=== PATIENT | male | born 1970 | race Caucasian/White ===

== ENCOUNTER 2022-02-08 01:03 | Inpatient (IN) ==
[2022-02-08] MEDS ORDERED: ASPIRIN CHEW 324 MG PO STA (01:33)
[2022-02-08] MEDS ORDERED: NITROGLYCERIN SL 0.4 MG/TAB TAB SL STA ×2 (01:33→01:46)
[2022-02-08 01:37] LABS: Basophils # (auto) 0.08 K/uL (0-0.2); Basophils % (auto) 0.6 %; Eosinophils # (auto) 0.14 K/uL (0-0.50); Eosinophils % (auto) 1.1 %; Hematocrit (blood only) 42.6 % (40.1-51.0); Hemoglobin 15.1 g/dl (14.0-18.0); Immature Granulocytes # (auto) 0.07 K/uL (0.00-0.02); Immature Granulocytes % (auto) 0.5 %; Lymphocytes # (auto) 3.08 K/uL (1.2-3.4); Lymphocytes % (auto) 23.2 %; Mean Corpuscular Hemoglobin 31.9 pg (25.0-34.0); Mean Corpuscular Hgb Conc 35.4 g/dL (32.0-36.0); Mean Corpuscular Volume 89.9 fL (80.0-100.0); Mean Platelet Volume 10.2 fL (9.4-12.4); Monocytes # (auto) 0.92 K/uL (0.24-0.82); Monocytes % (auto) 6.9 %; Neutrophils # (auto) 9.01 K/uL (1.4-6.5); Neutrophils % (auto) 67.7 %; Platelet Count 266 K/uL (130-400); RDW Coefficient of Variation 12.1 % (11.5-14.5); RDW Standard Deviation 40.1 fL (36.4-46.3); Red Blood Count 4.74 M/uL (4.63-6.08)
[2022-02-08 02:02] LABS: Alanine Aminotransferase 40 U/L (7-52); Albumin Globulin Ratio 1.4 (0.9-2); Albumin Level 4.1 gm/dl (3.4-5.0); Alkaline Phosphatase 65 U/L (34-104); Anion Gap 11 (3-11); Aspartate Aminotransferase 19 U/L (13-39); BUN Creatinine Ratio 16.7 (10-20); Bilirubin,Total 0.3 mg/dl (0.2-1.0); Blood Urea Nitrogen 14 mg/dl (6-23); Calcium 9.3 mg/dl (8.5-10.1); Carbon Dioxide 26 mmol/L (21-32); Chloride 100 mmol/L (98-107); Est GFR (African American) 117.5 ml/min; Est GFR (Non-African American) 101.4 ml/min; Globulin 2.9 gm/dl (2.5-4.0); Glucose 172 mg/dl (70-99(Fasting)); Lipase 166 U/L (11-82); Potassium 3.7 mmol/L (3.5-5.1); Sodium 137 mmol/L (136-145)
[2022-02-08 02:05] LABS: Troponin I High Sensitivity 34.3 pg/ml (0-20)
[2022-02-08] MEDS ORDERED: fentaNYL citrate 100 MCG/2 ML VIAL IV STA (02:34)
[2022-02-08] MEDS ORDERED: Heparin IV Adult Wt-Based Standard *NO* Bolus Protocol IV ONE (02:34)
[2022-02-08] MEDS ORDERED: HEPARIN SODIUM/DEXTROSE 25,000 UNITS/500 ML BAG IV SCH (03:00)
[2022-02-08 03:49] LABS: Partial Thromboplastin Ratio 0.8; Partial Thromboplastin Time 21.7 Seconds (21.0-31.0)
--- NOTE | 2022-02-08 05:03 | History & Physical Report ---
Date of Service February 08, 2022 Assessment & Plan (1) NSTEMI (non-ST elevated myocardial infarction): Plan: 51 y/o M Hx HTN, HLD, CAD, smoker. Developed L sided CP radiating into arm after playing pool at around midnight. He denies nausea/vomiting, diaphoresis or SOB. Initial labs are notable for leukocytosis an a trop of 34. EKG did not support acute ischemia. 1) Likely NSTEMI - serial trops, NTG, beta vahid, ASA, Plavix, Lovenox. Echo and cardiology consult requested, however, he will likely require a cath. 2) HTN - NTG metoprolol, lisinopril 3) HLD - statin changed to high-intensity - Crestor 40mg 4) Advised on smoking cessation Full code - full-dose Lovenox Total time for this admit including review of labs, meds, imaging, records - discussion with pt and ER attending 38 min History of Present Illness Chief Complaint: Chest pain Primary Care Provider: NO PCP 51 y/o M Hx HTN, HLD, CAD, smoker. Developed L sided CP radiating into arm after playing pool at around midnight. He denies nausea/vomiting, diaphoresis or SOB. Initial labs are notable for leukocytosis an a trop of 34. EKG did not support acute ischemia. 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 Family: Mother [place] mid 50s Father age 77 - does not know cause Allergies Allergy/AdvReac Type Severity Reaction Status Date / Time No Known Drug Allergies Allergy Unknown Verified 05/24/21 10:29 Home Medications Medication Instructions Recorded Confirmed Type nitroglycerin 0.4 mg sublingual 0.4 mg sublingual Q5M PRN Chest 03/19/19 05/24/21 History tablet Pain aspirin 81 mg tablet,delayed 81 mg PO DAILY 12/25/19 05/24/21 History release (Mata Low Dose Aspirin) lisinopril 20 mg tablet 20 mg PO DAILY #90 tabs 06/06/21 Rx simvastatin 80 mg tablet 80 mg PO QPM #90 tabs 11/27/21 Rx metoprolol tartrate 50 mg tablet 50 mg PO BID #180 tabs 01/16/22 Rx Past Med/Surg History Social History Smoking Status: Current every day smoker Preferred Language: Finnish Feels Safe at Home: Yes Review of Systems Review of Systems: Gen: Denies fevers, night sweats, rigors, fatigue, malaise, weight loss/gain ENT: Denies congestion, throat pain, hearing loss Eyes: Denies acute visual changes CV: + CP radiating into L arm Pulmonary: Denies SOB, cough, wheezing GI: Denies N/V, diarrhea, constipation Neuro: Denies acute or unilateral weakness, acute gait impairment, headache or acute visual changes Musculoskeletal: Denies joint pain, inflammation Endocrine: Denies polydipsia, polyuria Skin: Denies acute rashes or ulcers Physical Exam Physical Exam: General: AAO x 3, no distress ENT: No erythema or exudates, no thrush Eyes: GIUSEPPE, EOMI Head and neck: Normocephalic, atraumatic, No JVD, neck is supple. Chest/heart: Nontender, S1,2, RRR, no murmurs, no gallops Lungs: CTAB, no wheezing or crackles Abdomen: Nontender, nondistended, BS+ Neuro: AAO x 3, speech is clear, no unilateral weakness or loss of sensation, coordination intact Musculoskeletal: No joint inflammation, muscle tenderness, FROM Skin: No acute rashes or ulcers Extremities: No clubbing, cyanosis, edema Results & Data Results & Data ([facility]) Vital Signs (Past 12 Hours) Vital Signs Temp Pulse Resp BP Pulse Ox O2 Del Method 02/08/22 04:00 72 14 94 Room Air 02/08/22 04:00 158/82 H 02/08/22 03:30 58 L 17 02/08/22 03:30 152/85 H 02/08/22 03:15 59 L 14 02/08/22 03:15 158/83 H 02/08/22 03:00 71 16 95 02/08/22 03:00 135/75 02/08/22 01:43 75 20 95 02/08/22 01:43 147/81 H 02/08/22 01:40 73 17 97 02/08/22 01:39 69 18 95 02/08/22 01:39 148/94 H 02/08/22 01:30 69 18 96 02/08/22 01:20 68 20 96 02/08/22 01:19 68 24 95 02/08/22 01:03 99 Room Air 02/08/22 01:22 99 Room Air 02/08/22 01:07 97.9 F 68 20 157/86 H 98 Room Air PG Care Time/CCT Total # of Minutes Spent Total Time Spent with Patient: Total time spent is greater than 50% in coordination of care (as documented) at patient's floor/unit and/or counseling patient: Coding Level of Care Code 37267 Initial Inpt Care Lvl 2 Diagnoses NSTEMI (non-ST elevated myocardial infarction) I21.4
[2022-02-08] MEDS ORDERED: CLOPIDOGREL BISULFATE 300 MG TAB PO STA ×2 (05:35→08:40)
[2022-02-08] MEDS: D5NSS + 20MEQ KCL 20 MEQ/1,000 ML BAG IV SCH ×2 (05:56→20:06)
[2022-02-08] MEDS ORDERED: ACETAMINOPHEN 325 MG TAB PO PRN (06:31)
[2022-02-08] MEDS ORDERED: ONDANSETRON INJ 2 MG/ML 2 ML VIAL IV PRN (06:31)
[2022-02-08] MEDS ORDERED: NITROGLYCERIN SL 0.4 MG/TAB TAB SL PRN (06:31)
[2022-02-08] MEDS ORDERED: ZOLPIDEM TARTRATE 5 MG TAB PO PRN (06:31)
--- NOTE | 2022-02-08 08:24 | Hospitalist Progress Note ---
Date of Service February 08, 2022 Assessment & Plan (1) NSTEMI (non-ST elevated myocardial infarction): Plan: 51 y/o M Hx HTN, HLD, CAD, smoker. Developed L sided CP radiating into arm after playing pool at around midnight. He denies nausea/vomiting, diaphoresis or SOB. Initial labs are notable for leukocytosis an a trop of 34. EKG did not support acute ischemia. NSTEMI - heart cath culprit lesion, RCA:Large caliber and dominant vessel. Mild irregularities until the distal segment just prior to the bifurcation. There, there is a lot of thrombus and plaque which appears to be ruptured. Appears 80% stenosed and there is ALON II flow beyond the lesion. There is a large PDA as well as a large posterior lateral branch with some of the plaque and thrombus involving the ostium of the PDA. PCI of RCA: There is 0% residual stenosis post PCI There is no evidence of dissection or perforation post PCI ALON-3 flow post PCI DAPT, metoprolol, lisinopril HLD - statin changed to high-intensity - Crestor 40mg counselled on smoking cessation, is a smoker not convinced to stop, pt stated "i quit" Full code - Admission and Anticipated Discharge Date Admission Date: February 08, 2022 Subjective pt seen post cardiac cath, feels well has no chest pain did have thrombectomy and NITISH to E=RCA Review of Systems Review of Systems: Mild distress and fatigue no headache, no visual changes no speech or swallowing issues no further chest pain, pressure or palpitations no shortness of breath, cough or wheezes no abdominal pain, nausea or vomiting, diarrhea or constipation no dysuria, hematuria or frequency no focal joint pain or swelling has T band on his wrist without discomfort no back pain, CVA tenderness or radicular pain no bruising, bleeding or rashes no focal signs of weakness or numbness or altered sensation no complaints of anxiety or depression.. Physical Exam Physical Exam: The patient appeared well nourished and normally developed. Vital signs as documented. Head exam is normocephalic atraumatic Neck is without JVD, thyromegaly, or carotid bruits. Lungs are clear to auscultation, no focal loss of breath sounds Cardiac exam, Rhythm is regular.. No murmurs, rubs or gallops. Abdominal exam reveals normal bowel sounds, soft non tender, no masses Extremities are nonedematous and both pedal pulses are present Neurologic exam is alert and oriented, no focal loss of strength or sensation Skin is without bruises or rashes Psychologically is without concerns for anxiety or depression.. Results & Data Results & Data ([facility]) Vital Signs (Past 12 Hours) Vital Signs Temp Pulse Pulse Resp BP BP Pulse Ox 02/08/22 07:45 97.7 F 61 19 146/67 H 98 02/08/22 07:44 56 L 02/08/22 06:20 97.9 F 62 18 151/82 H 97 02/08/22 06:39 02/08/22 04:00 72 14 94 02/08/22 04:00 158/82 H 02/08/22 03:30 58 L 17 02/08/22 03:30 152/85 H 02/08/22 03:15 59 L 14 02/08/22 03:15 158/83 H 02/08/22 03:00 71 16 95 02/08/22 03:00 135/75 02/08/22 01:43 75 20 95 02/08/22 01:43 147/81 H 02/08/22 01:40 73 17 97 02/08/22 01:39 69 18 95 02/08/22 01:39 148/94 H 02/08/22 01:30 69 18 96 02/08/22 01:20 68 20 96 02/08/22 01:19 68 24 95 02/08/22 01:03 99 02/08/22 01:22 99 02/08/22 01:07 97.9 F 68 20 157/86 H 98 O2 Del Method 02/08/22 07:45 Room Air 02/08/22 07:44 02/08/22 06:20 Room Air 02/08/22 06:39 Room Air 02/08/22 04:00 Room Air 02/08/22 04:00 02/08/22 03:30 02/08/22 03:30 02/08/22 03:15 02/08/22 03:15 02/08/22 03:00 02/08/22 03:00 02/08/22 01:43 02/08/22 01:43 02/08/22 01:40 02/08/22 01:39 02/08/22 01:39 02/08/22 01:30 02/08/22 01:20 02/08/22 01:19 02/08/22 01:03 Room Air 02/08/22 01:22 Room Air 02/08/22 01:07 Room Air PG Care Time/CCT Total # of Minutes Spent Total Time Spent with Patient: Total time spent is greater than 50% in coordination of care (as documented) at patient's floor/unit and/or counseling patient: Coding Level of Care Code 41650 Subseq Hosp Care Lvl 2 Diagnoses NSTEMI (non-ST elevated myocardial infarction) I21.4
[2022-02-08] MEDS ORDERED: SODIUM CHLORIDE 0.9% 1000ML 1,000 ML IV SCH (08:45)
--- NOTE | 2022-02-08 08:52 | Pre Anesthesia Assessment ---
Date of Service February 08, 2022 Pre Sedation Assessment Vital Signs Temp Pulse Pulse Resp BP BP Pulse Ox 02/08/22 07:45 36.5 C 61 19 146/67 H 98 02/08/22 07:44 56 L 02/08/22 06:20 36.6 C 62 18 151/82 H 97 02/08/22 06:39 02/08/22 04:00 72 14 94 02/08/22 04:00 158/82 H 02/08/22 03:30 58 L 17 02/08/22 03:30 152/85 H 02/08/22 03:15 59 L 14 02/08/22 03:15 158/83 H 02/08/22 03:00 71 16 95 02/08/22 03:00 135/75 02/08/22 01:43 75 20 95 02/08/22 01:43 147/81 H 02/08/22 01:40 73 17 97 02/08/22 01:39 69 18 95 02/08/22 01:39 148/94 H 02/08/22 01:30 69 18 96 02/08/22 01:20 68 20 96 02/08/22 01:19 68 24 95 02/08/22 01:03 99 02/08/22 01:22 99 02/08/22 01:07 36.6 C 68 20 157/86 H 98 O2 Del Method 02/08/22 07:45 Room Air 02/08/22 07:44 02/08/22 06:20 Room Air 02/08/22 06:39 Room Air 02/08/22 04:00 Room Air 02/08/22 04:00 02/08/22 03:30 02/08/22 03:30 02/08/22 03:15 02/08/22 03:15 02/08/22 03:00 02/08/22 03:00 02/08/22 01:43 02/08/22 01:43 02/08/22 01:40 02/08/22 01:39 02/08/22 01:39 02/08/22 01:30 02/08/22 01:20 02/08/22 01:19 02/08/22 01:03 Room Air 02/08/22 01:22 Room Air 02/08/22 01:07 Room Air Cardiovascular RRR, no murmur, no edema Respiratory normal respiratory effort, lungs clear to auscultation Pre-Sedation Airway Assessment Smoking Status: Current every day smoker Mallampati Class: III III Notes The planned sedation has been discussed with the patient. Informed Consent was obtained. I have identified the patient, determined the appropriateness of sedation and have assessed the patient immediately prior to the procedure. All medicine(s) and interventions are by my order.
[2022-02-08] MEDS: ASPIRIN 81 MG ECTAB PO SCH (08:57)
[2022-02-08] MEDS: METOPROLOL TARTRATE 50 MG TAB PO SCH ×2 (09:08→20:08)
[2022-02-08] MEDS: lisinopril 20 MG TAB PO SCH (09:09)
--- NOTE | 2022-02-08 09:17 | XRay Report ---
SINGLE VIEW CHEST CLINICAL HISTORY: Atypical chest pain. FINDINGS: An AP, portable, upright chest radiograph is compared to chest x-ray and chest CT dated 09/09. The cardiomediastinal silhouette is top normal for projection. There is pulmonary vascular con gestion. There are mild bibasilar airspace opacities, right greater than left. No pneumothorax is see n. The bony thorax is grossly intact. IMPRESSION: 1. There is pulmonary vascular congestion. 2. Bibasilar airspace opacities are nonspecific and could represent atelectasis versus a mild infecti ous/inflammatory pneumonitis. Clinical correlation will be required. ACT 112: Negative or not required by law. Electronically signed by: Jean Reyes M.D. 02/08/2022 9:16 AM
[2022-02-08] MEDS ORDERED: fentaNYL citrate 100 MCG/2 ML VIAL ONE (09:48)
[2022-02-08] MEDS ORDERED: MIDAZOLAM HCL 1 MG/ML 2ML VIAL ONE (09:48)
[2022-02-08] MEDS ORDERED: niCARdipine HCL INJ 2.5 MG/ML 10 ML AMP ONE (09:48)
[2022-02-08] MEDS ORDERED: HEPARIN (PORCINE) 1000 UNIT/ML 10 ML (CATH LAB USE ONLY) ONE (09:48)
[2022-02-08] MEDS ORDERED: NITROGLYCERIN/D5W 100MCG/ML 20ML SYR ONE (09:49)
--- NOTE | 2022-02-08 11:19 | Cardiac Catheterization ---
[facility] Data: [place] [employer] Cardiac Status Clinical evaluation leading to the procedure CAD Presenation: Non STEMI Anginal Classification: CCS IV Heart Failure: No Cardiogenic Shock within 24 Hours: No Cardiac Arrest within 24 Hours: No Imaging Studies Past 6 Months: No STEMI OR Non-STEMI Symptom Onset Date: 02/07/22 Coronary Anatomy Dominant: Right Left Main (% Stenosis): Normal LAD (% Stenosis): Proximal (Mild) Circumflex (% Stenosis): Normal OM1 (% Stenosis): Proximal (Stent patent) RCA (% Stenosis): Distal (80%) R PDA (% Stenosis): Ostial (80%) Diagnostic Physicians Name: Raúl Marino MD, PhD Closure Device Percutaneous Entry Location: Radial Closure Device: Radial Band Recommendations: PCI without planned CABG PCI Indication: PCI for high risk Non-YOANNA Lesion Segment Name: Distal RCA Culprit Artery: Yes Stenosis Prior to Rx (%): 80% Chronic Total Occlusion: No Pre-Procedure ALON Flow: 2 Previously Treated Lesion: No Lesion Complexity: Non-High/Non-C Lesion Length (mm): 12 Thrombus Present: Yes Bifurcation Lesion: Yes Guidewire Across Lesion: Yes Intraprocedure Events Significant Disection: No Perforation: No Cardiac Cath Procedure Full Procedure Date February 08, 2022 Pre-Procedure Diagnosis Pre-Procedure Diagnosis: Non STEMI AUC Score AUC Score: 07 Post-Procedure Diagnosis Post-Procedure Diagnosis: Severe CAD Procedure(s) Performed Procedure(s) Performed: Coronary Angiography and Drug Eluting Stent (RCA) Veneer Manufacturer Raúl Marino MD, PhD Estimated Blood Loss Estimated Blood Loss: 10ml Medication(s) Medication(s): Fentanyl, Heparin, Lidocaine 1%, Nicardipine, Nitroglycerin and Versed Summary of Findings Brief description: Patient was brought to the cardiac catheterization suite where he was shaved and prepped in a sterile fashion. Sedated using IV Versed and fentanyl. Soft tissues of the right wrist were anesthetized using 1 mL of 1% Xylocaine. The right radial artery was accessed using a modified Seldinger technique and a 6 [place]ian radial artery glide sheath was placed. Patient was provided anticoagulation with IV heparin and antispasmodics including verapamil and nitr oglycerin. All catheters were advanced and exchanged over a 0.035 J-tip wire. Left coronary angiography was performed in orthogonal views with a 5 [place] 4.0 diagnostic catheter Right coronary angiography was performed in orthogonal views with a 5 [place] 4.0 diagnostic catheter. Diagnostic catheters were removed and we proceeded with PCI. ACT was checked and additional heparin was provided as needed to maintain therapeutic ACT. The right coronary artery was engaged with a 6 [place]ian JR4 guide catheter. Through this, a BMW universal guidewire was advanced and positioned distally in the PDA. Over the wire, a 2.5 x 12 mm PTCA balloon was advanced and positioned across the lesion. This was predilated up to 14 giana. The balloon was then removed. A 3.5 x 18 mm [place] drug-eluting stent was then advanced and positioned across the lesion in the distal RCA extending into to the proximal portion of the PDA. This covered the entire lesion and area of clot. The stent was then deployed at 12 giana. Stent balloon was removed. The stent was postdilated in its proximal and mid segments using a 3.5 x 9 mm noncompliant balloon. Inflation to 10 giana in the mid segment. 14 giana followed by 17 giana in the proximal portion of the stent. The noncompliant balloon was then removed. Guidewire was removed and final angiography was performed. The guide catheter was then removed. Radial artery sheath was removed. Hemostasis was obtained using a TR band. Patient was hemodynamically stable and asymptomatic. He was returned to the recovery area. This ended the case. Coronary angiography and PCI findings: LMT: Large caliber bifurcating into LAD and circumflex. Mild luminal irregularities. LAD: Large caliber and transapical. Gives a medium caliber first diagonal and small to medium caliber second and third diagonals. Proximal segment has mild diffuse disease. The mid LAD has mild disease and the distal vessel has mild luminal irregularities. LCx: Large caliber and nondominant. It is essentially a large branching OM1. There is a proximal stent which is widely patent. RCA: Large caliber and dominant vessel. Mild irregularities until the distal segment just prior to the bifurcation. There, there is a lot of thrombus and plaque which appears to be ruptured. Appears 80% stenosed and there is ALON II flow beyond the lesion. There is a large PDA as well as a large posterior lateral branch with some of the plaque and thrombus involving the ostium of the PDA. PCI of RCA: There is 0% residual stenosis post PCI There is no evidence of dissection or perforation post PCI ALON-3 flow post PCI Hemodynamics Rest Ao:: 99/71 mmHg, mean 92 mmHg Final Ao: 107/63 mmHg, mean 82 mmHg LV: Not performed Recommendations Recommendations: PCI without planned CABG Radiation Exposure (mGy) 1533 mGy, 8.2 minutes of fluoroscopy time Contrast (mls) 115 mL Anesthesia 1 mg IV Versed, 25 mcg IV fentanyl Procedural Complication(s) None Disposition PCU I attest to the content of the Intraoperative Record and any orders documented therein. Any exceptions are noted below. [facility] Card Cath Procedure Codes Cardiac Catheterization Procedure 1: Cardiovascular Cath Procedures: 38656 Coronaries Moderate Sedation Procedure 1: Sedation/Anesthesia: 95970 Mod Sedation by the same physician;Init15 Min Child Age 5 & Up Procedure 2: Sedation/Anesthesia: 97751 Mod Sedation by the same physician; Ea [id number] Minutes Stenting Procedure 1: Cardiovascular Stent Procedures: 05294 Perc transcatheter placement of intracoronary stent(s), with ang PG Care Time/CCT Total # of Minutes Spent Total Time Spent with Patient: Total time spent is greater than 50% in coordination of care (as documented) at patient's floor/unit and/or counseling patient:
--- NOTE | 2022-02-08 13:42 | Electrocardiogram Report ---
Test Reason : Blood Pressure : / mmHG Vent. Rate : 063 BPM Atrial Rate : 063 BPM P-R Int : 190 ms QRS Dur : 088 ms QT Int : 388 ms P-R-T Axes : 009 088 070 degrees QTc Int : 397 ms Normal sinus rhythm When compared with ECG of 12-SEP-2010 06:59, Nonspecific T wave abnormality no longer evident in Inferior leads Confirmed by Jac Lima ([id number]) on 02/08/2022 1:41:52 PM Referred By: REFERRED SELF Confirmed By:Joshua Lima
--- NOTE | 2022-02-08 13:45 | Electrocardiogram Report ---
Test Reason : Blood Pressure : / mmHG Vent. Rate : 070 BPM Atrial Rate : 070 BPM P-R Int : 202 ms QRS Dur : 084 ms QT Int : 380 ms P-R-T Axes : 057 086 068 degrees QTc Int : 410 ms Normal sinus rhythm ST elevation, consider early repolarization, pericarditis, or injury Nonspecific ST abnormality Abnormal ECG When compared with ECG of 08-FEB-2022 01:15, (unconfirmed) No significant change was found Confirmed by Jac Lima ([id number]) on 02/08/2022 1:45:00 PM Referred By: REFERRED SELF Confirmed By:Joshua Lima
--- NOTE | 2022-02-08 13:51 | Electrocardiogram Report ---
Test Reason : Blood Pressure : / mmHG Vent. Rate : 062 BPM Atrial Rate : 062 BPM P-R Int : 196 ms QRS Dur : 086 ms QT Int : 408 ms P-R-T Axes : 060 088 075 degrees QTc Int : 414 ms Normal sinus rhythm with sinus arrhythmia Normal ECG When compared with ECG of 08-FEB-2022 02:32, (unconfirmed) No significant change was found Confirmed by Jac Lima ([id number]) on 02/08/2022 1:51:11 PM Referred By: REFERRED SELF Confirmed By:Joshua Lima
--- NOTE | 2022-02-08 13:55 | Electrocardiogram Report ---
Test Reason : Blood Pressure : / mmHG Vent. Rate : 053 BPM Atrial Rate : 053 BPM P-R Int : 208 ms QRS Dur : 084 ms QT Int : 452 ms P-R-T Axes : 020 084 072 degrees QTc Int : 424 ms Sinus bradycardia Otherwise normal ECG When compared with ECG of 08-FEB-2022 04:58, (unconfirmed) No significant change was found Confirmed by Jac Lima ([id number]) on 02/08/2022 1:54:33 PM Referred By: REFERRED SELF Confirmed By:Joshua Lima
--- NOTE | 2022-02-08 14:00 | Electrocardiogram Report ---
Test Reason : Blood Pressure : / mmHG Vent. Rate : 056 BPM Atrial Rate : 056 BPM P-R Int : 196 ms QRS Dur : 086 ms QT Int : 400 ms P-R-T Axes : 020 083 069 degrees QTc Int : 386 ms Sinus bradycardia Otherwise normal ECG When compared with ECG of 08-FEB-2022 01:29, (unconfirmed) No significant change was found Confirmed by Jac Lima ([id number]) on 02/08/2022 2:00:21 PM Referred By: REFERRED SELF Confirmed By:Joshua Lima
--- NOTE | 2022-02-08 14:05 | Post Anesthesia Assessment ---
Date of Service February 08, 2022 Post Sedation Assessment Vital Signs Temp Pulse Pulse Resp BP BP Pulse Ox 02/08/22 13:45 36.4 C L 59 L 18 136/71 97 02/08/22 12:45 36.4 C L 57 L 16 130/81 96 02/08/22 12:15 36.4 C L 56 L 18 124/69 98 02/08/22 11:45 36.4 C L 57 L 18 124/64 97 02/08/22 11:30 36.4 C L 58 L 16 125/66 96 02/08/22 11:15 36.7 C 54 L 16 119/69 96 02/08/22 11:00 36.5 C 54 L 18 129/77 95 02/08/22 10:43 54 L 16 135/66 96 02/08/22 10:37 55 L 16 129/69 98 02/08/22 07:45 36.5 C 61 19 146/67 H 98 02/08/22 07:44 56 L 02/08/22 06:20 36.6 C 62 18 151/82 H 97 02/08/22 06:39 02/08/22 04:00 72 14 94 02/08/22 04:00 158/82 H 02/08/22 03:30 58 L 17 02/08/22 03:30 152/85 H 02/08/22 03:15 59 L 14 02/08/22 03:15 158/83 H 02/08/22 03:00 71 16 95 02/08/22 03:00 135/75 02/08/22 01:43 75 20 95 02/08/22 01:43 147/81 H 02/08/22 01:40 73 17 97 02/08/22 01:39 69 18 95 02/08/22 01:39 148/94 H 02/08/22 01:30 69 18 96 02/08/22 01:20 68 20 96 02/08/22 01:19 68 24 95 02/08/22 01:03 99 02/08/22 01:22 99 02/08/22 01:07 36.6 C 68 20 157/86 H 98 O2 Del Method 02/08/22 13:45 Room Air 02/08/22 12:45 Room Air 02/08/22 12:15 Room Air 02/08/22 11:45 Room Air 02/08/22 11:30 Room Air 02/08/22 11:15 Room Air 02/08/22 11:00 Room Air 02/08/22 10:43 Room Air 02/08/22 10:37 Room Air 02/08/22 07:45 Room Air 02/08/22 07:44 02/08/22 06:20 Room Air 02/08/22 06:39 Room Air 02/08/22 04:00 Room Air 02/08/22 04:00 02/08/22 03:30 02/08/22 03:30 02/08/22 03:15 02/08/22 03:15 02/08/22 03:00 02/08/22 03:00 02/08/22 01:43 02/08/22 01:43 02/08/22 01:40 02/08/22 01:39 02/08/22 01:39 02/08/22 01:30 02/08/22 01:20 02/08/22 01:19 02/08/22 01:03 Room Air 02/08/22 01:22 Room Air 02/08/22 01:07 Room Air Recovery Score Activity: Moves 4 extremities Respiration: Deep Breath/Cough Circulation: +/-20% PreAnes Value Consciousness: Arouseable (by name) Oxygen Saturation: > 92% On Room Air Post Anesthesia Score: 9 Discharge Sedation Level of Care: Phase I Post Sedation Plan On clinical assessment, the patient appears to have tolerated the sedation without complications. Patient is recovering as anticipated. Patient will continue to be monitored by nursing and may be discharged when sedation discharge criteria are met per below protocol. Upon Completions of procedure up to 15 minutes continue every 5 minute vital signs and the P.A.R. score; then discharge to a Phase I or Fast Track to Phase II per the following guidelines: * Discharge Patient to appropriate Phase II area if PAR is 8 or greater or return to pre- procedure baseline. The post - procedure orders will be as directed. * If PAR score is less than 8 or not return to pre-procedure baseline then patient will follow Phase I monitoring till PAR is reached for Phase II. The Phase I may be done in procedure room or may call to secure a Phase I area. * If naloxone or flumazenil are used for reversal, hold in Phase I for continued monitoring from when last reversal dose was given for a minimum of 60 minutes or longer pending the nurse and/or physician discretion of patient condition before discharge to Phase II. Please call the Sedation Physician to re-evaluate and complete post-note for discharge to Phase II area. Do NOT discharge from procedure sedation or Phase 1 until post- sedation evaluation note is complete by procedure /sedation MD Sedation Discharge Instructions to be given to the patient at discharge to home. [facility] Procedure Codes (Charges) Indication for Procedure Indication for procedure: NSTEMI Sedation/Anesthesia Procedure 1: Sedation/Anesthesia: 23127 Mod Sedation by the same physician;Init15 Min Child Age 5 & Up Total Sedation Time (minutes): 15 Procedure 2: Sedation/Anesthesia: 29465 Mod Sedation by the same physician; Ea [id number] Minutes Total Sedation Time (minutes): 30
--- NOTE | 2022-02-08 15:54 | Cardiology Consultation ---
Date of Consultation February 08, 2022 Assessment & Plan (1) NSTEMI (non-ST elevated myocardial infarction): Secondary to ruptured plaque in the distal RCA. Status post PCI. Echo was ordered and is pending. He will continue with dual antiplatelet therapy using aspirin and Plavix to complete at least 1 but preferably up to 2 years therapy. Guideline directed medical therapy for secondary prevention of coronary disease as below. Likely 48-hour admission. (2) Coronary artery disease: Known history of coronary disease with recurrence. Continues to smoke despite advice to discontinue. We will strongly encourage him to discontinue. We will recommend cardiac rehab. Guideline directed medical therapy will include low- dose aspirin, high intensity statin therapy, beta-vahid, plus or minus LALO inhibitor/ARB. Was previously on metoprolol tartrate 50 mg p.o. twice daily, lisinopril 20 mg daily aspirin and simvastatin. I would encourage to change from simvastatin to a atorvastatin or rosuvastatin. (3) Atherogenic dyslipidemia: Check fasting lipid panel. Utilize a atorvastatin over simvastatin and we will try to achieve aggressive LDL reduction. (4) Benign essential hypertension: Initial blood pressure was elevated but now at target. Continue current regimen. Plan We will follow tomorrow. Make adjustments in his medical regimen pending results of echocardiogram and labs. Anticipate discharge on Friday. History of Present Illness Reason for Consultation: Non-ST elevation TX Attending Physician: Pravin Ramachandran MD History of Present Illness 51-year-old gentleman with prior history of coronary artery disease and stenting performed in 2010 presented with sudden onset of chest pain and pressure, shortness of breath, and radiation up into the left neck. He follows regularly with Dr. Whalen but has not seen him in a year. Remote history of PCI to the circumflex in 2010. He continues to smoke and is not interested in stopping. Patient has a elevated troponin without significant ischemic changes on the EKG. He did have borderline inferior ST elevation on 1 EKG which did not meet criteria for ST elevation TX. Patient underwent cardiac catheterization at my recommendation and was found to have a thrombotic lesion in the distal RCA. PCI was undertaken with a large caliber drug-eluting stent. Result was angiographically excellent with congregational of distal flow and no residual stenosis. Prior stent was found to be patent. Patient denies any preceding anginal chest pain, syncope, near syncope, orthopnea, PND, racing heartbeat, palpitations, or edema. Allergies Allergy/AdvReac Type Severity Reaction Status Date / Time No Known Drug Allergies Allergy Unknown Verified 05/24/21 10:29 Home Medications Medication Instructions Recorded Confirmed Type nitroglycerin 0.4 mg sublingual 0.4 mg sublingual Q5M PRN Chest 03/19/19 05/24/21 History tablet Pain aspirin 81 mg tablet,delayed 81 mg PO DAILY 12/25/19 05/24/21 History release (Mata Low Dose Aspirin) lisinopril 20 mg tablet 20 mg PO DAILY #90 tabs 06/06/21 Rx simvastatin 80 mg tablet 80 mg PO QPM #90 tabs 11/27/21 Rx metoprolol tartrate 50 mg tablet 50 mg PO BID #180 tabs 01/16/22 Rx Patient History Social History Smoking Status: Current every day smoker Cigarettes Per Day: 15; Hx Alcohol Use: No Hx Substance Use: No Preferred Language: Romansh Beliefs That Will Affect Care: None Current Living Situation: Family Feels Safe at Home: Yes Safety Concerns: Feels Safe At This Time Assistive Devices: None Review of Systems Review of Systems: Negative x12 point review except as per HPI Physical Exam Constitutional: WD/WN, vitals as above Eyes: PERRL, conjunctivae normal, anicteric sclerae ENMT: external ear and nose normal, oropharynx normal Neck: No JVD. Bearded. Respiratory: normal respiratory effort, lungs clear to auscultation Cardiovascular: RRR, no murmur, no edema (Distal pulses are 2+ and symmetric. ) Gastrointestinal (Abdomen): normal bowel sounds, soft, nontender, no hepatosplenomegaly Musculoskeletal: no cyanosis or clubbing, extremities motor strength 5/5 Neurologic: Somnolent but arousable and appropriate. Cognition is intact. Speech is fluent. There is no focal motor deficits. No tremor. Psychiatric: A+Ox3, euthymic affect Results & Data ([facility]) Vital Signs (Past 12 Hours) Vital Signs Temp Pulse Pulse Resp BP BP Pulse Ox 02/08/22 08:00 02/08/22 13:45 36.4 C L 59 L 18 136/71 97 02/08/22 12:45 36.4 C L 57 L 16 130/81 96 02/08/22 12:15 36.4 C L 56 L 18 124/69 98 02/08/22 11:45 36.4 C L 57 L 18 124/64 97 02/08/22 11:30 36.4 C L 58 L 16 125/66 96 02/08/22 11:15 36.7 C 54 L 16 119/69 96 02/08/22 11:00 36.5 C 54 L 18 129/77 95 02/08/22 10:43 54 L 16 135/66 96 02/08/22 10:37 55 L 16 129/69 98 02/08/22 07:45 36.5 C 61 19 146/67 H 98 02/08/22 07:44 56 L 02/08/22 06:20 36.6 C 62 18 151/82 H 97 02/08/22 06:39 02/08/22 04:00 72 14 94 02/08/22 04:00 158/82 H O2 Del Method 02/08/22 08:00 Room Air 02/08/22 13:45 Room Air 02/08/22 12:45 Room Air 02/08/22 12:15 Room Air 02/08/22 11:45 Room Air 02/08/22 11:30 Room Air 02/08/22 11:15 Room Air 02/08/22 11:00 Room Air 02/08/22 10:43 Room Air 02/08/22 10:37 Room Air 02/08/22 07:45 Room Air 02/08/22 07:44 02/08/22 06:20 Room Air 02/08/22 06:39 Room Air 02/08/22 04:00 Room Air 02/08/22 04:00 PG Care Time/CCT Total # of Minutes Spent Total Time Spent with Patient: Total time spent is greater than 50% in coordination of care (as documented) at patient's floor/unit and/or counseling patient: Coding Level of Care Code 09279 Inpt Consult Level 5 Diagnoses NSTEMI (non-ST elevated myocardial infarction) I21.4 Coronary artery disease I25.10 Atherogenic dyslipidemia E78.5 Benign essential hypertension I10
--- NOTE | 2022-02-08 19:12 | Emergency Department Note ---
Impression & Plan Non-ST elevation GA (NSTEMI) Admit to the [facility] Hospitalist ED Provider Note NAME: SEN CARLTON AGE: 51 SEX: M ARRIVES VIA: Walk-In INFORMANT: Patient and his ED PROVIDER(S): Italia Murillo DO CHIEF COMPLAINT: Left-sided chest pain PLAN: Disposition: Admit to the hospitalist Condition: Guarded MEDICAL DECISION MAKING: This is a 51-year-old male patient presents to the emergency department with left-sided chest pain that began 1 hour ago. Patient had a heart attack at age 39 with a stent placed. Patient's chest discomfort started suddenly 1 hour ago. He received sublingual nitroglycerin here and aspirin. Pain was decreased with nitroglycerin. EKG was unremarkable. However, troponin was elevated. His presentation was consistent with an NSTEMI. His pain was finally relieved with IV fentanyl. He was started on IV heparin. I discussed the case with the hospitalist and they will evaluate for further management. Triage Nursing notes reviewed and agree with them. Additional history obtained from the patient's is at the bedside Vital Signs: reviewed and remarkable for mild hypertension Differential diagnosis: STEMI, NSTEMI, GERD, aortic dissection ER treatment provided: Oral aspirin IV fentanyl Sublingual nitro IV heparin Diagnostics interpreted by me: ECG: Sinus bradycardia at a rate of [address] segment elevation or signs of ischemia. There is no ectopy. ECG: Sinus bradycardia at a rate of [address] segment elevation or signs of ischemia. There is no ectopy. Cardiac Monitoring: Sinus bradycardia at a rate of 55 Laboratory studies: See below Imaging studies: As per my interpretation Portable chest x-ray: No cardiomegaly; narrow mediastinum; normal pulmonary pathology HPI: 51/M arrives for evaluation of chest pain. The patient developed left- sided chest discomfort approximately 1 hour ago. There is no associated shortness of breath, nausea or diaphoresis. However the pain was stabbing in nature. The pain began to radiate into his left arm. ROS: See above HPI for pertinent positives & negatives. A total of 10 systems reviewed and were otherwise negative. PAST MEDICAL HISTORY:Previous GA with stent placement. Hypercholesterolemia PAST SURGICAL HISTORY:See Below FAMILY HISTORY:See Below SOCIAL HISTORY: The patient is a smoker HOME MEDICATIONS: See list ALLERGIES: None VITALS:See Below PHYSICAL EXAMINATION: HEENT: Head - normocephalic and atraumatic. Pupils are equal, round, and re active to light. Extraocular eye muscles are intact, and sclera are anicteric. Nose - moist nasal mucosa without discharge. Mouth - moist buccal mucosa. Oropharynx is nonerythematous and there is no tonsillar exudate or edema noted. Neck: Supple; no JVD, nuchal rigidity, cervical lymphadenopathy, or auscultated bruits. Heart: Regular rate and rhythm. There is a normal S1 and S2 with no murmurs, clicks, or gallops appreciated. Lungs: Clear to auscultation bilaterally with no wheezes, rales, or rhonchi. Abdomen: Soft, completely nontender, nondistended, with good bowel sounds. There are no palpable pulsatile masses or hepatosplenomegaly. There is no guarding, rigidity, or rebound noted. Extremities: No evidence of cyanosis, clubbing, or edema. There are easily palpable peripheral pulses. Skin: warm and dry with good turgor and no rashes. ED COURSE: Times/Reassessments: 0115: Patient was evaluated in room C3. A complete history and physical was performed. An IV lock was initiated and labs were drawn as above. An order was placed for continuous cardiac monitoring. The patient was in a sinus bradycardia at a rate of 55. A twelve-lead EKG was obtained as described above. A portable chest x-ray was performed. Patient was given 4 baby aspirin. He was given sublingual nitroglycerin which did relieve some of the chest discomfort. Patient was reevaluated was still having discomfort. His vital signs remained stable. EKG was repeated. He was given additional sublingual nitro and IV fent anyl. I kept the patient abreast of the situation. He was started on IV heparin. I have personally spent greater than 30 minutes of critical care time in the direct management of this patient. This includes bedside care, interpretation of diagnostic studies, and testing, discussion with consultants, patient, and family members, and other required patient management activities. This 30 minutes is in excess of all separately billable procedures. Italia Murillo DO Past Med/Surg History Social History Smoking Status: Current every day smoker Cigarettes Per Day: 15; Hx Alcohol Use: No Hx Substance Use: No Preferred Language: Fijian Beliefs That Will Affect Care: None Current Living Situation: Family Feels Safe at Home: Yes Safety Concerns: Feels Safe At This Time Assistive Devices: None Allergies Allergies Allergy/AdvReac Type Severity Reaction Status Date / Time No Known Drug Allergies Allergy Unknown Verified 05/24/21 10:29 Home Meds Home Medications Medication Instructions Recorded Confirmed nitroglycerin 0.4 mg sublingual 0.4 mg sublingual Q5M PRN Chest 03/19/19 05/24/21 tablet Pain aspirin 81 mg tablet,delayed 81 mg PO DAILY 12/25/19 05/24/21 release (Mata Low Dose Aspirin) Previous Rx's Medication Instructions Recorded lisinopril 20 mg tablet 20 mg PO DAILY #90 tabs 06/06/21 simvastatin 80 mg tablet 80 mg PO QPM #90 tabs 11/27/21 metoprolol tartrate 50 mg tablet 50 mg PO BID #180 tabs 01/16/22 Results & Data (ED) Vital Signs Vital Signs - 24 hr 02/08/22 01:07 02/08/22 01:22 02/08/22 01:03 Temperature 36.6 C Temperature Source Temporal Artery Scan Pulse Rate 68 Pulse Rate from SpO2 Sensor Respiratory Rate 20 Respiratory Depth Normal Blood Pressure 157/86 H Blood Pressure Mean 109 Blood Pressure Position Sitting Pulse Oximetry 98 99 99 Oxygen Delivery Method Room Air Room Air Room Air Sepsis Recent Fever Within 48 Hours No Sepsis New/Unexplained Change in Mental Status N/A Sepsis Action Taken by Nursing No Action Required 02/08/22 01:19 02/08/22 01:20 02/08/22 01:30 Temperature Temperature Source Pulse Rate 68 68 69 Pulse Rate from SpO2 Sensor 67 71 71 Respiratory Rate 24 20 18 Respiratory Depth Blood Pressure Blood Pressure Mean Blood Pressure Position Pulse Oximetry 95 96 96 Oxygen Delivery Method Sepsis Recent Fever Within 48 Hours Sepsis New/Unexplained Change in Mental Status Sepsis Action Taken by Nursing 02/08/22 01:39 02/08/22 01:39 02/08/22 01:40 Temperature Temperature Source Pulse Rate 69 73 Pulse Rate from SpO2 Sensor 69 73 Respiratory Rate 18 17 Respiratory Depth Blood Pressure 148/94 H Blood Pressure Mean 112 Blood Pressure Position Pulse Oximetry 95 97 Oxygen Delivery Method Sepsis Recent Fever Within 48 Hours Sepsis New/Unexplained Change in Mental Status Sepsis Action Taken by Nursing 02/08/22 01:43 02/08/22 01:43 02/08/22 03:00 Temperature Temperature Source Pulse Rate 75 Pulse Rate from SpO2 Sensor 76 Respiratory Rate 20 Respiratory Depth Blood Pressure 147/81 H 135/75 Blood Pressure Mean 103 95 Blood Pressure Position Pulse Oximetry 95 Oxygen Delivery Method Sepsis Recent Fever Within 48 Hours Sepsis New/Unexplained Change in Mental Status Sepsis Action Taken by Nursing 02/08/22 03:00 02/08/22 03:15 02/08/22 03:15 Temperature Temperature Source Pulse Rate 71 59 L Pulse Rate from SpO2 Sensor 72 Respiratory Rate 16 14 Respiratory Depth Blood Pressure 158/83 H Blood Pressure Mean 108 Blood Pressure Position Pulse Oximetry 95 Oxygen Delivery Method Sepsis Recent Fever Within 48 Hours Sepsis New/Unexplained Change in Mental Status Sepsis Action Taken by Nursing 02/08/22 03:30 02/08/22 03:30 02/08/22 04:00 Temperature Temperature Source Pulse Rate 58 L Pulse Rate from SpO2 Sensor Respiratory Rate 17 Respiratory Depth Blood Pressure 152/85 H 158/82 H Blood Pressure Mean 107 107 Blood Pressure Position Pulse Oximetry Oxygen Delivery Method Sepsis Recent Fever Within 48 Hours Sepsis New/Unexplained Change in Mental Status Sepsis Action Taken by Nursing 02/08/22 04:00 Temperature Temperature Source Pulse Rate 72 Pulse Rate from SpO2 Sensor 65 Respiratory Rate 14 Respiratory Depth Blood Pressure Blood Pressure Mean Blood Pressure Position Pulse Oximetry 94 Oxygen Delivery Method Room Air Sepsis Recent Fever Within 48 Hours Sepsis New/Unexplained Change in Mental Status Sepsis Action Taken by Nursing Laboratory Data Result diagrams: 02/08/22 01:28 02/08/22 01:28 Lab Results 02/08/22 02/08/22 02/08/22 Range/Units 01:28 01:28 01:28 WBC 13.30 H (4.8-10.8) K/ul RBC 4.74 (4.63-6.08) M/uL Hgb 15.1 (14.0-18.0) g/dl Hct 42.6 (40.1-51.0) % MCV 89.9 (80.0-100.0) fL MCH 31.9 (25.0-34.0) pg MCHC 35.4 (32.0-36.0) g/dL RDW Std Deviation 40.1 (36.4-46.3) fL RDW Coeff of Andrew 12.1 (11.5-14.5) % Plt Count 266 (130-400) K/uL MPV 10.2 (9.4-12.4) fL Immature Gran % (Auto) 0.5 % Neut % (Auto) 67.7 % Lymph % (Auto) 23.2 % Burnett % (Auto) 6.9 % Eos % (Auto) 1.1 % Baso % (Auto) 0.6 % Neut # (Auto) 9.01 H (1.4-6.5) K/uL Lymph # (Auto) 3.08 (1.2-3.4) K/uL Burnett # (Auto) 0.92 H (0.24-0.82) K/uL Eos # (Auto) 0.14 (0-0.50) K/uL Baso # (Auto) 0.08 (0-0.2) K/uL Immature Gran # (Auto) 0.07 H (0.00-0.02) K/uL APTT (21.0-31.0) Seconds PTT Ratio Sodium 137 (136-145) mmol/L Potassium 3.7 (3.5-5.1) mmol/L Chloride 100 (98-107) mmol/L Carbon Dioxide 26 (21-32) mmol/L Anion Gap 11 (3-11) BUN 14 (6-23) mg/dl Creatinine 0.84 (0.6-1.4) mg/dl Est Cr Clr Drug Dosing Not Reportable Est GFR ( Amer) 117.5 ml/min Est GFR (Non-Af Amer) 101.4 ml/min BUN/Creatinine Ratio 16.7 (10-20) Glucose 172 H (70-99(Fasting)) mg/dl Calcium 9.3 (8.5-10.1) mg/dl Total Bilirubin 0.3 (0.2-1.0) mg/dl AST 19 (13-39) U/L ALT 40 (7-52) U/L Alkaline Phosphatase 65 (34-104) U/L Troponin I High Sens 34.3 H (0-20) pg/ml Total Protein 7.0 (6.0-8.3) gm/dl Albumin 4.1 (3.4-5.0) gm/dl Globulin 2.9 (2.5-4.0) gm/dl Albumin/Globulin Ratio 1.4 (0.9-2) Lipase 166 H (11-82) U/L SARS-CoV-2, RNA, NAAT NEGATIVE (NEGATIVE) 02/08/22 Range/Units 03:26 WBC (4.8-10.8) K/ul RBC (4.63-6.08) M/uL Hgb (14.0-18.0) g/dl Hct (40.1-51.0) % MCV (80.0-100.0) fL MCH (25.0-34.0) pg MCHC (32.0-36.0) g/dL RDW Std Deviation (36.4-46.3) fL RDW Coeff of Andrew (11.5-14.5) % Plt Count (130-400) K/uL MPV (9.4-12.4) fL Immature Gran % (Auto) % Neut % (Auto) % Lymph % (Auto) % Burnett % (Auto) % Eos % (Auto) % Baso % (Auto) % Neut # (Auto) (1.4-6.5) K/uL Lymph # (Auto) (1.2-3.4) K/uL Burnett # (Auto) (0.24-0.82) K/uL Eos # (Auto) (0-0.50) K/uL Baso # (Auto) (0-0.2) K/uL Immature Gran # (Auto) (0.00-0.02) K/uL APTT 21.7 (21.0-31.0) Seconds PTT Ratio 0.8 Sodium (136-145) mmol/L Potassium (3.5-5.1) mmol/L Chloride (98-107) mmol/L Carbon Dioxide (21-32) mmol/L Anion Gap (3-11) BUN (6-23) mg/dl Creatinine (0.6-1.4) mg/dl Est Cr Clr Drug Dosing Est GFR ( Amer) ml/min Est GFR (Non-Af Amer) ml/min BUN/Creatinine Ratio (10-20) Glucose (70-99(Fasting)) mg/dl Calcium (8.5-10.1) mg/dl Total Bilirubin (0.2-1.0) mg/dl AST (13-39) U/L ALT (7-52) U/L Alkaline Phosphatase (34-104) U/L Troponin I High Sens (0-20) pg/ml Total Protein (6.0-8.3) gm/dl Albumin (3.4-5.0) gm/dl Globulin (2.5-4.0) gm/dl Albumin/Globulin Ratio (0.9-2) Lipase (11-82) U/L SARS-CoV-2, RNA, NAAT (NEGATIVE) Administered Medications Aspirin (Aspirin 81 Mg Ectab) 81 mg PO DAILY SARAN Stop: 03/10/22 08:59 Last Admin: 02/08/22 08:57 Dose: 81 mg Documented By: Potassium Chloride/Dextrose/Sod Cl (D5nss + 20meq Kcl) 20 meq in 1,000 mls @ 80 mls/hr IV .[id number] SARAN; Protocol Stop: 02/09/22 07:00 Last Infusion: 02/08/22 11:22 Dose: 80 mls/hr Documented By: Infusion: 02/08/22 09:05 Dose: 0 mls/hr Documented By: Admin: 02/08/22 05:56 Dose: 80 mls/hr Documented By: DARIUS Lisinopril (Lisinopril 20 Mg Tab) 20 mg PO DAILY SARAN Stop: 03/10/22 08:59 Last Admin: 02/08/22 09:09 Dose: 20 mg Documented By: Metoprolol Tartrate (Metoprolol Tartrate 50 Mg Tab) 50 mg PO BID SARAN Stop: 03/10/22 08:59 Last Admin: 02/08/22 09:08 Dose: 50 mg Documented By: Discontinued Medications Aspirin (Aspirin Chew 324 Mg) 324 mg PO NOW STA Stop: 02/08/22 01:34 Last Admin: 02/08/22 01:38 Dose: 324 mg Documented By: PIERRE Clopidogrel Bisulfate (Clopidogrel Bisulfate 300 Mg Tab) 300 mg PO NOW STA Stop: 02/08/22 05:36 Last Admin: 02/08/22 05:56 Dose: 300 mg Documented By: DARIUS Clopidogrel Bisulfate (Clopidogrel Bisulfate 300 Mg Tab) 300 mg PO NOW STA Stop: 02/08/22 08:41 Last Admin: 02/08/22 08:57 Dose: 300 mg Documented By: Fentanyl Citrate (Fentanyl Citrate 100 Mcg/2 Ml Vial) 50 mcg IV NOW STA Stop: 02/08/22 02:35 Last Admin: 02/08/22 02:40 Dose: 50 mcg Documented By: PIERRE Fentanyl Citrate (Fentanyl Citrate 100 Mcg/2 Ml Vial) Confirm Administered Dose 100 mcg .ROUTE .STK-MED ONE Stop: 02/08/22 09:49 Last Admin: 02/08/22 10:29 Dose: 25 mcg Documented By: PATRICE Heparin Sodium (Porcine) (Heparin (Porcine) 1000 Unit/Ml 10 Ml (Education Supervisor Use Only)) Confirm Administered Dose 10,000 units .ROUTE .STK-MED ONE Stop: 02/08/22 09:49 Last Admin: 02/08/22 10:29 Dose: 10,000 units Documented By: PATRICE Heparin Sodium/Dextrose (Heparin Iv Adult Wt-Based Standard *No* Bolus Protocol) 1 each IV ONE ONE; Protocol Stop: 02/08/22 02:35 Last Admin: 02/08/22 04:03 Dose: Not Given Documented By: DARIUS Heparin Sodium/Sodium Chloride (Heparin In Nss Infusion 1000 Unit/500 Ml (2 U/Ml) Bag) Confirm Administered Dose 3,000 units IV .STK-MED ONE Stop: 02/08/22 09:50 Last Admin: 02/08/22 10:31 Dose: 3,000 units Documented By: EMILY Heparin Sodium/Dextrose (Heparin Sodium/Dextrose) 25,000 units in 500 mls @ 0 mls/hr IV .Q0M SARAN; Protocol Stop: 03/10/22 02:59 Last Titration: 02/08/22 11:20 Dose: 0 units/hr, 0 mls/hr Documented By: Co-signed By: DO Titration: 02/08/22 09:36 Dose: 0 units/hr, 0 mls/hr Documented By: Co-signed By: DO Titration: 02/08/22 07:07 Dose: 1,550 units/hr, 31 mls/hr Documented By: Co-signed By: BONNY Admin: 02/08/22 04:03 Dose: 1,550 units/hr, 31 mls/hr Documented By: DARIUS Co-signed By: ANTELMO Sodium Chloride (Nss 1000ml) 1,000 mls @ 75 mls/hr IV .[id number] [facility] Stop: 02/08/22 22:04 Last Infusion: 02/08/22 16:16 Dose: 0 mls/hr Documented By: Admin: 02/08/22 09:07 Dose: 75 mls/hr Documented By: Midazolam HCl (Midazolam Hcl 1 Mg/Ml 2ml Vial) Confirm Administered Dose 2 mg .ROUTE .STK-MED ONE Stop: 02/08/22 09:49 Last Admin: 02/08/22 10:31 Dose: 1 mg Documented By: PATRICE Nicardipine HCl (Nicardipine Hcl Inj 2.5 Mg/Ml 10 Ml Amp) Confirm Administered Dose 25 mg .ROUTE .STK-MED ONE Stop: 02/08/22 09:49 Last Admin: 02/08/22 10:31 Dose: 25 mg Documented By: EMILY Nitroglycerin (Nitroglycerin Sl 0.4 Mg/Tab Tab) 0.4 mg SL NOW STA Stop: 02/08/22 01:34 Last Admin: 02/08/22 01:38 Dose: 0.4 mg Documented By: PIERRE Nitroglycerin (Nitroglycerin Sl 0.4 Mg/Tab Tab) 0.4 mg SL NOW STA Stop: 02/08/22 01:47 Last Admin: 02/08/22 01:47 Dose: 0.4 mg Documented By: PIERRE Nitroglycerin/Dextrose (Nitroglycerin/D5w 100mcg/Ml 20ml Syr) Confirm Admin istered Dose 2,000 mcg .ROUTE .STK-MED ONE Stop: 02/08/22 09:50 Last Admin: 02/08/22 10:32 Dose: 2,000 mcg Documented By: EMILY Imaging Data Radiologist's Impression: Chest X-Ray 02/08/22 01:22 SINGLE VIEW CHEST CLINICAL HISTORY: Atypical chest pain. FINDINGS: An AP, portable, upright chest radiograph is compared to chest x-ray and chest CT dated 09/09/2010. The cardiomediastinal silhouette is top normal for projection. There is pulmonary vascular congestion. There are mild bibasilar airspace opacities, right greater than left. No pneumothorax is seen. The bony thorax is grossly intact. IMPRESSION: 1. There is pulmonary vascular congestion. 2. Bibasilar airspace opacities are nonspecific and could represent atelectasis versus a mild infectious/inflammatory pneumonitis. Clinical correlation will be required. ACT 112: Negative or not required by law. Electronically signed by: Jean Reyes M.D. 02/08/2022 9:16 AM Discharge Plan Visit Data Chief Complaint: Chest Pain Stated Complaint: SEVERE CHEST PAIN ED Provider: Italia Murillo Discharge Problem: Non-ST elevation GA (NSTEMI) Patient Disposition: Admitted As Inpatient Discharge Instructions Interventions: ED Discharge Assessment Last Done: 02/08/22 06:08
[2022-02-08] MEDS ORDERED: ROSUVASTATIN CALCIUM 20 MG TAB PO SCH (21:00)
[2022-02-09] MEDS ORDERED: Nursing to Pharmacy Communication SCH (02:00)
[2022-02-09] MEDS: lisinopril 20 MG TAB PO SCH (08:36)
[2022-02-09] MEDS: METOPROLOL TARTRATE 50 MG TAB PO SCH (08:36)
[2022-02-09] MEDS: ASPIRIN 81 MG ECTAB PO SCH (08:36)
[2022-02-09] MEDS ORDERED: CLOPIDOGREL BISULFATE 75 MG TAB PO SCH (09:00)
[2022-02-09] MEDS ORDERED: ATORVASTATIN 40 MG TAB PO SCH (09:00)
--- NOTE | 2022-02-09 18:43 | Discharge Summary ---
Date of Service February 09, 2022 Admission HPI Per Admitting Provider 51 y/o M Hx HTN, HLD, CAD, smoker. Developed L sided CP radiating into arm after playing pool at around midnight. He denies nausea/vomiting, diaphoresis or SOB. Initial labs are notable for leukocytosis an a trop of 34. EKG did not support acute ischemia. PMH: 1) HTN 2) HLD 3) CAD - [place] and proximal LAD stent age 39 Surgical: Denies Social: Smokes 1 pack QD, does not drink alcohol, cook by vocation. Family: Mother [place] mid 50s Father age 77 - does not know cause Principal Diagnosis NSTEMI Thrombectomy and drug-eluting stent to right coronary artery Discharge Exam The patient appeared stable Vital signs as documented. Lungs are clear to auscultation and appear unlabored Cardiac exam, Rhythm is regular.. No murmurs, rubs or gallops. Abdominal exam reveals normal bowel sounds, soft non tender, no masses Extremities are nonedematous and both pedal pulses are normal. Neurologic exam is alert and oriented, no focal loss of strength or sensation Skin is without bruises or rashes Psychologically is without concerns for anxiety or depression. Discharge Data Allergies Allergy/AdvReac Type Severity Reaction Status Date / Time No Known Drug Allergies Allergy Unknown Verified 05/24/21 10:29 Consultations 02/08/22 03:02 ED Decision to Admit Stat 02/08/22 06:31 Consult Cardiology Routine 02/08/22 10:34 Consult Cardiac Rehabilitation Routine Procedures Performed Operation Date: 02/08/22 09:45 Actual Procedures s Cineradiography w/Routine Exam - Raúl Marino MD, PhD p Drug Eluting Stent SGl Vessel - Raúl Marino MD, PhD p Cath, Coronaries ONLY (no LV) - Raúl Marino MD, PhD Ordered Studies 02/08/22 08:44 CL Cath Imgs for PACS use only Routine Hospital Course (1) NSTEMI (non-ST elevated myocardial infarction): 51 y/o M Hx HTN, HLD, CAD, smoker. Developed L sided CP radiating into arm after playing pool at around midnight. He denies nausea/vomiting, diaphoresis or SOB. Initial labs are notable for leukocytosis an a trop of 34. EKG did not support acute ischemia. NSTEMI - heart cath culprit lesion, RCA:Large caliber and dominant vessel. Mild irregularities until the distal segment just prior to the bifurcation. There, there is a lot of thrombus and plaque which appears to be ruptured. Appears 80% stenosed and there is ALON II flow beyond the lesion. There is a large PDA as well as a large posterior lateral branch with some of the plaque and thrombus involving the ostium of the PDA. PCI of RCA: There is 0% residual stenosis post PCI There is no evidence of dissection or perforation post PCI ALON-3 flow post PCI DAPT, metoprolol, lisinopril HLD - statin changed to high-intensity -atorvastatin 40mg counselled on smoking cessation, is a smoker not convinced to stop, pt stated "i quit" Patient given refill of prescription of nitroglycerin Patient to follow-up with Dr. 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 * No lifting over 2 pounds (approximately a 1/2 gallon of milk) with the utilized arm for 24 hours. * No strenuous activity such as bowling or tennis for 3 days. * Keep the site of the procedure covered with a bandage for 24 hours. *You may shower the day after the procedure. Do not take a tub bath or submerge the puncture site in water for the next 3 days. *Do not operate any motorized equipment for 3 days. SPECIAL CARE INSTRUCTIONS: The site may be slightly bruised and sore following your procedure. Should any of the following occur, contact the Dr. who performed your procedure. 1. Redness/inflammation, swelling, chills, or fever, or colored drainage at procedure site within 3-7 days after your procedure. 2. Coldness, discoloration, ongoing numbness, severe pain, or swelling. Expect mild tingling of hand and tenderness at the puncture site for up to three days. If this persists beyond three days, or other symptoms develop, notify the Dr. who performed your procedure. BLEEDING: If the procedure site on your wrist begins to bleed, do not panic 1. Place 1 or 2 fingers firmly just slightly above the insertion site to stop the bleeding. You may be able to feel your pulse as you hold pressure. 2. Lift your finger after 5 minutes to see if the bleeding has stopped. 3. Once the bleeding has stopped, gently wipe the wrist area clean with a bandage. * If the bleeding from your wrist does not stop after 10 minutes, or if there is a large amount of bleeding or spurting, call 911 (do not drive yourself to the hospital). SKIN IRRITATION: * You may experience some redness and/or swelling in the area where radiation was administered. If any skin irritation occurs, please contact your family physician. FOLLOW UP VISIT: Keep any scheduled doctor appointments. Pending Studies at Discharge: No Stand-Alone Forms: [facility] [employer], Work/School Release, Smoking Cessation Medications and DC Order Prescriptions: New clopidogrel 75 mg Tablet 75 mg PO QAM Qty: 30 5RF atorvastatin 40 mg Tablet 40 mg PO QAM Qty: 30 5RF Continued lisinopril 20 mg tablet 20 mg PO DAILY Qty: 90 3RF metoprolol tartrate 50 mg tablet 50 mg PO BID Qty: 180 3RF nitroglycerin 0.4 mg tablet, sublingual 0.4 mg SL Q5M PRN (Reason: Chest Pain) aspirin [Mata Low Dose Aspirin] 81 mg Tablet,Delayed Release (/Ec) 81 mg PO DAILY Discontinued simvastatin 80 mg tablet 80 mg PO QPM Qty: 90 3RF Discharge Orders: Discharge Order (Routine); Ordered 02/09/22 Ordered By: Pravin Fischer/Other Patient Handouts: Tips Cardiovascular Quit Smoking Admission Data Admit Date/Time: 02/08/22 05:21 Attending Provider: Pravin Ramachandran Admit Provider: Pasquale Holland Primary Care Provider: Edwardo Benjamin Other Providers: Pasquale Holland ; Marty Phelps Other Interventions: Discharge Summary Assessment (RN) Last Done: 02/09/22 10:27 Coding Level of Care Code D/C DAY MANAGEMENT >30 MINS Diagnoses NSTEMI (non-ST elevated myocardial infarction) I21.4
== END 2022-02-09 12:06 | disposition home or self-care (01) | DRG 247 ==
LOC: ED 01:03 → 2S 05:21 → SUATTDRO 05:21 → 2S 06:08
PROC: CLB.CCO (2022-02-08 09:45)